=== PATIENT | male | born 1995 | race African-American/Black ===

== ENCOUNTER 2021-08-08 15:53 | Emergency (ER) | payer OTHER ==
[~2021-08-08] VITALS: Ht 182.9 cm; Wt 142.9 kg
== END 2021-08-08 18:29 | disposition home or self-care (01) ==
LOC: ED 15:53 → EDBD 15:55 → ED 15:55
DX: S42.035A Nondisplaced fracture of lateral end of left clavicle, initial encounter for closed fracture (principal); S93.501A Unspecified sprain of right great toe, initial encounter; R51.9 Headache, unspecified; V59.40XA Driver of pick-up truck or van injured in collision with unspecified motor vehicles in traffic accident, initial encounter
CPT/HCPCS: 73000; 73660; 99284-25